=== PATIENT | female | born 1970 | race Caucasian/White ===

== ENCOUNTER 2021-03-27 07:53 | Outpatient (CLI) | payer BC, SELFPAY ==
[2021-03-27 09:00] LABS: Hematocrit 29.7 % (37.0-47.0); Hemoglobin 8.3 g/dL (12.0-15.0); Mean Corpuscular HGB Conc 27.9 g/dl (32-36); Mean Corpuscular Hemoglobin 19.9 pg (26-34); Mean Corpuscular Volume 71.2 fl (80-100); Platelet Count Result 432 k/mm3 (150-375); Red Blood Count 4.17 M/mm3 (4.2-5.4); Red Cell Distribution Width 20.7 % (11.5-14.5); White Blood Count 6.9 K/mm3 (4.5-10.0)
== END 2021-03-27 07:54 | disposition home or self-care (01) ==
PROVIDERS: PCP Family Medicine Adolescent Medicine; Visit Provider Student in an Organized Health Care Education/Training Program
DX: N93.9 Abnormal uterine and vaginal bleeding, unspecified (principal); Z01.818 Encounter for other preprocedural examination
CPT/HCPCS: 36415; 85027; 86850; 86900; 86901

== ENCOUNTER 2021-03-31 00:30 | Day surgery (SDC) | payer BC, SELFPAY ==
[2021-03-25 14:34] VITALS: BMI 23.4
[2021-03-31] VITALS (13 sets, daily range): BP systolic 111–148; BP diastolic 65–93; PULSE 65–88; RESP 12–16; TEMP 36.1–36.9; O2SAT 97–100
[2021-03-31] MEDS: ACETAMINOPHEN 500 MG TABLET 1000 MG PO (08:37)
[2021-03-31] MEDS: LACTATED RINGERS 1,000 ML 30 ML IV CONT ×2 (08:38→12:27)
[2021-03-31] MEDS: KETOROLAC 15 MG/ML VIAL (*BKC) IV PUSH (08:38)
[2021-03-31] MEDS: SCOPOLAMINE 1.5 MG PATCH TRANSDERM (08:44)
--- NOTE | 2021-03-31 09:14 | PM.IMHP ---
H&P: HPI History of Present Illness Date/Time: 03/31/21 09:14 50 yo F who presents for robotic assisted TLH/BS for AUB secondary to uterine fibroids. Pt has had 2 myomectomies in the past and still complained of bothersome abnormal uterine bleeding. Pt declined medical management and desires definitive management via hysterectomy. Chief Complaint: AUB uterine fibroids Review of Systems Cardiovascular: Cardiovascular: Denies chest pain, Denies leg edema, Denies palpitations, Denies dyspnea and Denies dyspnea on exertion Respiratory: Respiratory: Denies cough, Denies dyspnea and Denies dyspnea on exertion Gastrointestinal: Gastrointestinal: Denies abdominal pain, Denies constipation, Denies diarrhea, Denies nausea and Denies vomiting Genitourinary: Genitourinary: Denies hematuria, Denies urinary frequency, Denies dysuria, Denies pelvic pain, Denies urinary incontinence and Denies vaginal discharge Neurologic: Reports system reviewed and no additional complaints, except as documented Psychiatric: Psychiatric: Reports no additional psychiatric complaints Endocrine: Endocrine: Denies palpitations [facility] Family History Family History (Updated 04/28/16 @ 14:55 by DOCTOR UNKNOWN) Other Family history of malignant neoplasm Social History Social History Smoking packs per day: 0.5 Smoking cigarettes per day: 10.0 Years smoked: 5 Smoking pack-years: 2.50 Smoking status: Current every day smoker Tobacco type: cigarettes Alcohol intake: current Substance use: never Living arrangements: with family Gender identity (if verbalized by the patient): Female Sexual Orientation (if Verbalized by the Patient): Straight or Heterosexual Spiritual care concerns: No Meds Home Medications and Allergies Home Medications Medication Instructions Recorded Confirmed Type No Home Medications 03/25/21 03/25/21 History Allergies Allergy/AdvReac Type Severity Reaction Status Date / Time Penicillins AdvReac Unknown Unknown Verified 03/25/21 14:32 Exam Const: General: no acute distress Eyes: EOM: EOMs intact bilaterally Neck: Neck: supple Thyroid: thyroid normal Chest: Breast/axilla inspection: normal inspection of the breasts Breast/axilla palpation: normal palpation of the breasts, normal palpation of the axillae and no axillary lymphadenopathy Resp: Effort & Inspection: normal respiratory effort Auscultation: clear to auscultation bilaterally Cardio: Rate: regular rate Rhythm: regular rhythm GI: Inspection: non-distended GI Palp: Yes Soft to palpation, No Tenderness to palpation present (GI) and No Guarding due to palpation present (GI) Auscultation: normal bowel sounds : General: No bladder normal to palpation External Female Exam: normal external appearance Speculum Exam - Vagina: normal vaginal discharge and No vaginal bleeding Speculum Exam - Cervix: nontender Bimanual exam- vagina & uterus: No bladder normal to palpation and No Cervical tenderness present OB/external & speculum: No vaginal bleeding Skin: General skin exam: normal color and no rashes or lesions noted Neuro: Cognition (Neuro): normal cognition Speech: normal speech Extrem: General: normal to inspection and no edema Psych: Mental Status: mental status grossly normal Affect: normal affect Assessment and Plan Assessment and plan (1) Abnormal uterine bleeding (AUB): Code(s): N93.9 - Abnormal uterine and vaginal bleeding, unspecified Status: Acute Assessment and Plan: pt complains of AUB pelvic US shows uterine fibroid H/H 8.11/24, currently on iron supplementation, will continue plan for robotic assisted hysterectomy (2) Uterine fibroid: Code(s): D25.9 - Leiomyoma of uterus, unspecified Status: Acute Assessment and Plan: pelvic US shows 12x9.9x7.4 cm uterus with 7x6.5x7.5 cm uterine fibroid pt s/p 2 myomectomies without improvement of symptoms. pt desires def
--- NOTE | 2021-03-31 09:18 | WPDANESEPPF ---
Anes - Initial Pre Proc Eval Procedure: Operation Date: 03/31/21 10:00 Proposed Procedures p Robotic Assisted Total Vaginal Hysterectomy, with Bilateral Salpingectomy - Barrie Tomas MD Date/Time: 03/31/21 09:18 Surgeon: Barrie Tomas MD Pre Op Diagnosis: Enlarged uterus,fibroids,irregular uter. bleeding Patient Data Age: 50 Gender: F Height: 1.65 m Weight: 64 kg Allergies Allergy/AdvReac Type Severity Reaction Status Date / Time Penicillins AdvReac Unknown Unknown Verified 03/25/21 14:32 Home Medications Medication Instructions Recorded Confirmed Type No Home Medications 03/25/21 03/25/21 History Patient hx anesthesia problems: none Family hx anesthesia problems: none PMFSH Family History Family History (Updated 04/28/16 @ 14:55 by DOCTOR UNKNOWN) Other Family history of malignant neoplasm Social History Social History Smoking packs per day: 0.5 Smoking cigarettes per day: 10.0 Years smoked: 5 Smoking pack-years: 2.50 Smoking status: Current every day smoker Tobacco type: cigarettes Alcohol intake: current Substance use: never Living arrangements: with family Gender identity (if verbalized by the patient): Female Sexual Orientation (if Verbalized by the Patient): Straight or Heterosexual Spiritual care concerns: No Anes - Eval Final PreProcedure Day of Procedure 03/31/21 09:18 Patient weight: normal Heart: regular rate and rhythm Lungs: clear to auscultation Airway: Mallampati scale class II Neurological: alert and oriented Last oral intake: >/= 8 hours ASA classification: II Emergent: no Anesthetic plan: proceed Anesthesia type and monitoring: general ETT and standard monitoring Informed Consent: The patient's anesthetic plan and its attendant risks and benefits were discussed with the patient/family/POA. Questions were solicited and answers provided to the satisfaction of the patient/family/POA.
--- NOTE | 2021-03-31 09:19 | WPDHPUPDATE1 ---
History and Physical Update Update Date/Time: 03/31/21 09:19 History and Physical has been reviewed, including an updated exam of the patient. There are NO changes in the patient's condition. Risks, benefits, and alternatives have been discussed and questions answered. Patient agrees to proceed with procedure.
[2021-03-31] MEDS: ceFAZolin 2 GM/D5W 50 ML 2 GM/50 ML BAG IVPB (09:42)
[2021-03-31] MEDS: LIDO 1%/EPINEPHRINE 1:100,000 20 ML VIAL 18 ML INFILTRATE (10:30)
--- NOTE | 2021-03-31 12:18 | P.OP_ITS ---
Procedure Note - Detailed Date of Procedure 04/01/21 Pre-op Diagnosis Enlarged uterus,fibroids,irregular uter. bleeding Post-op Diagnosis same Procedure Performed robotic assisted total laparoscopic hysterectomy and bilateral salpingectomy Surgeon Barrie Tomas MD Anesthesia general Description of Procedure After the patient was appropriately consented she was taken to the operating room where she was transferred to the table in a dorsal supine position. General anesthesia was then induced with endotracheal intubation. The patient was transferred to a dorsal lithotomy position using adjustable yellow-fin stirrups. Her position was adjusted for appropriate support of her lower back and lower extremities. The patient was prepped and draped. A transurethral montanez catheter was place. The cervix was sequentially dilated and a TEVIN uterine manipulator placed in typical fashion about a 3.5 cm SADA ring. Gloves were changed. After confirmation of a functioning orogastric tube, lidocaine was injected at Chapa's point in the LUQ and a 5mm incision was made. A 5mm Optiview trocar was then inserted into the abdominal cavity under direct visualization and done so without complication. The abdomen was then insufflated with approximately 2-3L of CO2 establishing a pneumoperitoneum and the patient was placed in Trendelenburg position. Just above the umbilicus in the midline, a 8mm incision made after injection of lidocaine and a 8mm bladeless trocar advanced into the abdominal cavity under direct visualization without incident. We subsequently placed two robotic ports in a similar fashion, one in the left mid-quadrant and one in the right, 10cm lateral to the midline port. The robot was then docked. The left fallopian tube was identified to the level of the fimbrae. The fallopian tube was then transected along the inferior mesosalpinx. The left round ligament was divided and the posterior aspect of the broad ligament was then skeletonized down to the level of the internal cervical os, mobilizing the ureter laterally. The bladder flap was then created sharply. The ipsilateral uterine artery was skeletonized, bipolar cauterized and transected. A similar procedure was performed on the contralateral side, transecting the fallopian tube, completing the bladder flap, and skeletonizing, ligating, and dividing the uterine artery on this side. We ensured the vaginal pneumo- occluder balloon was insufflated and made a circumferential colpotomy using monopolar current. The uterine body was mostly made up of a large uterine fibroid. The specimen was bi-valved in the abdomen with a laparoscopic scalpel under direct visualization. The uterus, cervix, bilateral tubes were then delivered transvaginally. I then placed a single figure of eight suture of 0-vicryl in the left vaginal cuff apex. I then re-approximated the colpotomy with a running #1 PDO Quill suture in 2 layers. Following this dissection, the abdomen and pelvis were copiously irrigated and all surgical sites found to be hemostatic. Skin sites were reapproximated with 4-0 Vicryl in a subcuticular fashion. Steri-Strips were placed. The patient tolerated the procedure well. Sponge, needle and instrument counts were correct x 2 and the patient was taken to recovery in stable condition. Ancef was given for antimicrobial prophylaxis. The patient had SCD's on for VTE prophylaxis during the entire procedure. Estimated Blood Loss -50.0 Drains No Packing No Pathology yes (cervix, uterus, fallopian tubes) Complications No immediate complications Condition stable Disposition PACU
[2021-03-31] MEDS: fentaNYL CITRATE INJ (*CRX) 100 MCG/2 ML VIAL 25 MCG IV PUSH ×4 (12:39→13:01)
[2021-03-31] MEDS: ONDANSETRON INJ 4 MG/2 ML VIAL IV PUSH (12:48)
--- NOTE | 2021-03-31 13:19 | SUR.PHASEI ---
1300 - pt with swollen upper lip from oral airway. no open area noted. pt denies pain from lip
[2021-03-31] MEDS: HALOPERIDOL LACTATE 5 MG/ML VIAL 1 MG IV PUSH (13:45)
[2021-03-31] MEDS: IBUPROFEN 600 MG TABLET PO (16:53)
[2021-03-31] MEDS: HYDROcodone/acetaminophen (*CRX) 5-325 MG TABLET 1 TAB PO ×2 (20:17→23:40)
[2021-03-31] MEDS: KETOROLAC 30 MG/ML VIAL (*BKC) IV PUSH (23:34)
[2021-04-01] MEDS: HYDROcodone/acetaminophen (*CRX) 10-325 MG TABLET 1 TAB PO ×2 (03:34→07:12)
[2021-04-01 04:57] VITALS: BP 108/65; PULSE 71; RESP 15; TEMP 36.6; O2SAT 97
[2021-04-01] MEDS: IBUPROFEN 600 MG TABLET PO (07:11)
--- NOTE | 2021-04-01 07:12 | PM.DS ---
DS: Admitting Diagnosis Admitting Diagnosis AUB uterine fibroid DS: Summary Hospital Course Hospital Course: Raquel Osorio was admitted after robotic assisted total laparoscopic hysterectomy and bilateral salpingectomy for abnormal uterine bleeding secondary to uterine fibroid. The above procedure was performed with no complications. She is doing well post op. She states her pain is well controlled with PO medications. She reports minimal bleeding. She is ambulating up to the chair. Her montanez catheter was removed. She is tolerating PO without N/V. She reports passing flatus. Status at Discharge Overall status at discharge: patient is progressing back to baseline Time Spent with Patient Time attestation: Total time spent providing and/or coordinating discharge services: Time spent: Less than 30 minutes Exam Const: General: comfortable and no acute distress Limitations: no limitations Resp: Effort & Inspection: normal respiratory effort Auscultation: clear to auscultation bilaterally Cardio: Rate: regular rate Rhythm: regular rhythm GI: Inspection: non-distended GI Palp: Yes Soft to palpation, Yes Tenderness to palpation present (GI) (milder tenderness to deep palpation) and No Guarding due to palpation present (GI) Auscultation: normal bowel sounds Other: incisions C/D/I covered with dermabond Urinary Catheter: Urinary Catheter: urine clear Skin: General skin exam: normal color Extrem: General: normal to inspection Psych: Mental Status: mental status grossly normal Affect: normal affect DS: Data Data Completed and Pending Pending studies at discharge: Pending at discharge 03/31/21 11:04 Surgical [PTH] Routine Discharge Plan Discharge Patient Disposition: Home, Self-Care Discharge Instructions: Remove the Scopolamine patch that was placed behind your ear in 72 hours or less. Wash your hands after touching. Stand Alone Forms: General Discharge Instructions Follow-up/Referrals: Barrie Tomas MD [Physician] - 2 Weeks Discharge Medications: New ibuprofen 600 mg Tablet 600 mg PO Q6H PRN (Reason: Cramping) Qty: 30 RF: 0 oxycodone-acetaminophen 5-325 mg tablet 1 tablet PO Q6H PRN (Reason: pain) Qty: 28 RF: 0 sennosides-docusate sodium [Senna with Docusate Sodium] 8.6-50 mg tablet 1 tab-cap PO HS Qty: 30 RF: 0
[2021-04-01 07:15] VITALS: PULSE 71; RESP 15; O2SAT 97
== END 2021-04-01 10:15 | disposition home or self-care (01) ==
LOC: ANHSURGERY 13:46 → ANHOB2 17:14
PROVIDERS: PCP Family Medicine Adolescent Medicine; Visit Provider Student in an Organized Health Care Education/Training Program
PROC: (CPT 58573; principal; 2021-03-31 10:00)
DX: N93.9 Abnormal uterine and vaginal bleeding, unspecified (principal); N80.0 Endometriosis of uterus; D64.9 Anemia, unspecified; F17.210 Nicotine dependence, cigarettes, uncomplicated
CPT/HCPCS: 58573; 88307; 99199; A9270; J0330; J0690; J1100; J1630; J1885; J2250; J2405; J2704; J3010; J7030; J7120

== ENCOUNTER 2021-08-25 01:08 | Day surgery (SDC) | payer BC, SELFPAY ==
[2021-08-11 14:18] VITALS: BMI 25.0
[2021-08-25 07:44] VITALS: BP 121/73; PULSE 80; RESP 16; TEMP 36.1; O2SAT 100; BMI 25.2
[2021-08-25] MEDS: LACTATED RINGERS 1,000 ML 150 ML IV CONT (07:53)
--- NOTE | 2021-08-25 07:55 | WPDGICN ---
Assessment and Plan Assessment and plan (1) Encounter for screening colonoscopy: Code(s): Z12.11 - Encounter for screening for malignant neoplasm of colon Status: Acute Assessment and Plan: Patient presents for screening colonoscopy. Appears to be at average risk for colon polyps. GI Consult Note Consult date/time: 08/25/21 07:55 HPI: Raquel Osorio is a 50 year old female presents for screening colonoscopy. Patient reports that her current weight appetite and bowel movements are normal. She denies abdominal pain. She has had no bleeding. Family history is noncontributory. Review of Systems Review of Systems: All systems reviewed & are unremarkable except as noted in HPI and below PMFSH Family History Family History (Updated 04/28/16 @ 14:55 by DOCTOR UNKNOWN) Other Family history of malignant neoplasm Social History Social History Smoking packs per day: 0.5 Smoking cigarettes per day: 10.0 Years smoked: 5 Smoking pack-years: 2.50 Smoking status: Current every day smoker Tobacco type: cigarettes Alcohol intake: current Drinks per week: 5 Substance use: never Substance use type: does not use Living arrangements: with family Gender identity (if verbalized by the patient): Female Sexual Orientation (if Verbalized by the Patient): Straight or Heterosexual Spiritual care concerns: No Meds Home Medications and Allergies Home Medications Medication Instructions Recorded Confirmed Type multivit with min-folic acid 1 tablet PO DAILY 08/11/21 08/11/21 History [Adult One Daily Multivitamin] Allergies Allergy/AdvReac Type Severity Reaction Status Date / Time Penicillins AdvReac Unknown Unknown Verified 08/11/21 14:15 Vital Signs Vital Signs - 24 hr 08/25/21 07:44 Temperature 97 F L Pulse Rate 80 Respiratory Rate 16 Blood Pressure 121/73 Pulse Oximetry 100 Exam Narrative: Physical exam reveals patient be alert. Vital signs stable. HEENT exam is unremarkable. Patient is anicteric. Lungs are clear to auscultation and percussion. Heart is without murmur or extra sounds. Abdominal exam bowel sounds present soft nontender with no organomegaly. Digital external rectal exam is normal.
--- NOTE | 2021-08-25 08:39 | WPDANESEPPF ---
Anes - Initial Pre Proc Eval Procedure: Operation Date: 08/25/21 09:00 Proposed Procedures p Screening Colonoscopy - Chip Villareal MD Date/Time: 08/25/21 08:39 Surgeon: Chip Villareal MD Pre Op Diagnosis: neoplasm screening Patient Data Age: 50 Gender: F Height: 1.65 m Weight: 68.8 kg Last Vital Signs Temp 36.1 C L 08/25/21 07:44 Pulse 80 08/25/21 07:44 Resp 16 08/25/21 07:44 BP 121/73 08/25/21 07:44 Pulse Ox 100 08/25/21 07:44 Allergies Allergy/AdvReac Type Severity Reaction Status Date / Time Penicillins AdvReac Unknown Unknown Verified 08/11/21 14:15 Home Medications Medication Instructions Recorded Confirmed Type multivit with min-folic acid 1 tablet PO DAILY 08/11/21 08/11/21 History [Adult One Daily Multivitamin] Patient hx anesthesia problems: none Family hx anesthesia problems: none Results Review: All pre-operative results and documents have been reviewed as part of the pre-operative evaluation. [facility] Family History Family History Other Family history of malignant neoplasm Social History Social History Smoking packs per day: 0.5 Smoking cigarettes per day: 10.0 Years smoked: 5 Smoking pack-years: 2.50 Smoking status: Current every day smoker Tobacco type: cigarettes Alcohol intake: current Drinks per week: 5 Substance use: never Substance use type: does not use Living arrangements: with family Gender identity (if verbalized by the patient): Female Sexual Orientation (if Verbalized by the Patient): Straight or Heterosexual Spiritual care concerns: No Anes - Eval Final PreProcedure Day of Procedure 08/25/21 08:40 Patient weight: normal Heart: regular rate and rhythm Lungs: clear to auscultation Airway: Mallampati scale class II Neurological: alert and oriented Last oral intake: >/= 8 hours ASA classification: II Emergent: no Anesthetic plan: proceed Anesthesia type and monitoring: general GIVS and standard monitoring Results Review: All pre-operative results and documents have been reviewed as part of the pre-operative evaluation. Informed Consent: The patient's anesthetic plan and its attendant risks and benefits were discussed with the patient/family/POA. Questions were solicited and answers provided to the satisfaction of the patient/family/POA.
[2021-08-25] MEDS: SIMETHICONE ORAL SUSPENSION 20 MG/0.3 ML 30 ML BOTTLE 0.6 ML IRRIGATION (09:11)
[2021-08-25 09:20] VITALS: BP 94/60; PULSE 73; RESP 18; O2SAT 100
[2021-08-25 09:30] VITALS: BP 105/64; PULSE 79; RESP 16; O2SAT 100
[2021-08-25 09:40] VITALS: BP 123/78; PULSE 74; RESP 18; O2SAT 100
== END 2021-08-25 09:55 | disposition home or self-care (01) ==
PROVIDERS: PCP Family Medicine Adolescent Medicine; Visit Provider Internal Medicine Gastroenterology
PROC: 0DJD8ZZ Inspection of Lower Intestinal Tract, Via Natural or Artificial Opening Endoscopic (ICD-10-PCS; CPT 45378; principal; 2021-08-25 09:00)
DX: Z12.11 Encounter for screening for malignant neoplasm of colon (principal); K64.8 Other hemorrhoids; K57.30 Diverticulosis of large intestine without perforation or abscess without bleeding; F17.210 Nicotine dependence, cigarettes, uncomplicated
CPT/HCPCS: 45378; J2704; J7120

== ENCOUNTER → 2022-07-16 15:28 | Outpatient (CLI) | payer BC, SELFPAY ==
--- NOTE | ~2022-07-16 | MM_ITS ---
EXAMINATION: MM screening [place] BI w adriana HISTORY: Screening TECHNIQUE: Craniocaudal and mediolateral oblique 3-D tomosynthesis images were obtained and synthetic 2-D images were generated. CAD analysis was submitted and interpreted. COMPARISON: No prior mammogram is available for comparison at this institution. BREAST PARENCHYMAL COMPOSITION: Breast composed of scattered areas of fibroglandular density FINDINGS: There are focal asymmetries in the upper inner quadrant of the right breast. There is no ev idence for malignancy in the left breast. IMPRESSION: 1. Focal right breast asymmetries, upper inner quadrant, middle third. 2. Additional mammographic views and possible breast ultrasound are recommended. BI-RADS Category 0: Incomplete: Needs additional imaging evaluation. Reviewed, dictated and finalized at location A. CING ANALYST IMPRESSION: 1. Focal right breast asymmetries, upper inner quadrant, middle third. 2. Additional mammographic views and possible breast ultrasound are recommended . BI-RADS Category 0: Incomplete: Needs additional imaging evaluation.
== END ==
PROVIDERS: PCP Family Medicine Adolescent Medicine; Visit Provider Student in an Organized Health Care Education/Training Program
DX: Z12.31 Encounter for screening mammogram for malignant neoplasm of breast (principal); R92.8 Other abnormal and inconclusive findings on diagnostic imaging of breast
CPT/HCPCS: 77063; 77067

== ENCOUNTER → 2022-09-07 09:59 | Outpatient (CLI) | payer BC, SELFPAY ==
--- NOTE | ~2022-09-07 | MMUS_ITS ---
EXAMINATION: MM diagnostic [place] RT w adriana, US breast RT complete HISTORY: Focal asymmetry in upper inner quadrant of right breast on 07/16/2022 screening mammogram TECHNIQUE: Additional 3-D tomosynthesis images of the right breast were performed and synthetic 2-D i mages were generated. CAD analysis was submitted and interpreted. High resolution complete right leigh st ultrasound examination including all 4 quadrants and subareolar area was performed. COMPARISON: 07/16/2022 bilateral screening mammogram FINDINGS: MAMMOGRAPHIC FINDINGS: There is a circumscribed rounded 3.5 mm opacity in the inner aspect of the upper inner quadrant of th e right breast. Approximately 3.4 mm circumscribed opacity is suggested in the outer mid right breast. Each of these has circumscribed margins and relative density, suggesting most likely benign process. ULTRASOUND: 10:00 8 cm from nipple: Parallel circumscribed hypoechoic approximately 2 x 3 x 4.6 mm hypoechoic les ion without internal vascularity or posterior shadowing No suspicious mass or shadowing is detected otherwise. IMPRESSION: 1. Probable benign findings 2. Six-month diagnostic right mammogram and right breast ultrasound follow-up are recommended BI-RADS category 3, probably benign findings. Reviewed, dictated and finalized at location A. REDUCTION ROLLER IMPRESSION: 1. Probable benign findings 2. Six-month diagnostic right mammogram and right breast ultrasound follow-up a re recommended BI-RADS category 3, probably benign findings.
== END ==
PROVIDERS: PCP Family Medicine Adolescent Medicine; Visit Provider Student in an Organized Health Care Education/Training Program
DX: R92.8 Other abnormal and inconclusive findings on diagnostic imaging of breast (principal)
CPT/HCPCS: 76641; 77061; 77065; G0279

== ENCOUNTER 2023-04-04 12:44 | Outpatient (CLI) | payer OTHER, SELFPAY ==
--- NOTE | ~2023-04-04 | MMUS_ITS ---
EXAMINATION: MM diagnostic [place] RT w adriana, US breast RT limited HISTORY: Six-month follow-up for probably benign right breast mass TECHNIQUE: Craniocaudal, mediolateral, and mediolateral oblique 3-D tomosynthesis images of the right breast were performed and synthetic 2-D images were generated. CAD analysis was submitted and interp reted. High resolution limited right breast ultrasound was performed. COMPARISON: 09/07/2022, 07/16/2022, 04/21/2020 BREAST PARENCHYMAL COMPOSITION: There are scattered areas of fibroglandular density. FINDINGS: MAMMOGRAPHIC FINDINGS: There is stable 4 mm oval, obscured, low density mass in the middle third of the breast at the 12:00 location 5 cm from the nipple. ULTRASOUND: A stable 4 mm x 2 mm oval, circumscribed, parallel, hypoechoic mass with no posterior features or int ernal vascularity is again seen at the 10:00 location, 8 cm from the nipple. There has been no suspic ious interval change. No additional mass is identified. IMPRESSION: 1. Stable, probably benign right breast mass. 2. Recommend 6 month follow-up diagnostic mammogram and ultrasound. BI-RADS category 3, probably benign findings. Reviewed, dictated and finalized at location A. IMPRESSION: 1. Stable, probably benign right breast mass. 2. Recommend 6 month follow-up diagnostic mammogram and ultrasound. BI-RADS category 3, probably benign findings.
== END 2023-04-04 12:45 | disposition home or self-care (01) ==
LOC: ANHIMG 12:47
PROVIDERS: PCP Family Medicine Adolescent Medicine; Visit Provider Student in an Organized Health Care Education/Training Program
DX: R92.8 Other abnormal and inconclusive findings on diagnostic imaging of breast (principal)
CPT/HCPCS: 76642; 77061; 77065; G0279

== ENCOUNTER 2023-12-07 11:04 | Outpatient (CLI) | payer OTHER, SELFPAY ==
[2023-12-07 12:02] LABS: Hematocrit 42.4 % (37.0-47.0); Hemoglobin 13.6 g/dL (12.0-15.0); Mean Corpuscular HGB Conc 32.1 g/dl (32-36); Mean Corpuscular Hemoglobin 29.8 pg (26-34); Mean Platelet Volume 10.4 fl (7.4-10.4); Platelet Count Result 278 k/mm3 (150-375); Red Blood Count 4.56 M/mm3 (4.2-5.4); Red Cell Distribution Width 14.6 % (11.5-14.5); White Blood Count 6.6 K/mm3 (4.5-10.0)
[2023-12-07 12:15] LABS: Alanine Aminotransferase 32 U/L (6-35); Albumin Level 4.8 g/dL (3.5-5.1); Alkaline Phosphatase 69 U/L (38-126); Anion Gap 7 mmol/L (4-12); Aspartate Amino Transferase 30 U/L (14-36); Bilirubin,Total 0.7 mg/dL (0.2-1.3); Blood Urea Nitrogen 15 mg/dL (7-17); Calcium 9.8 mg/dL (8.4-10.2); Carbon Dioxide 25 mmol/L (22-30); Chloride 104 mmol/L (98-107); Cholesterol 250 mg/dL (0-200); Estimated Glomerular Filt Rate > 60; Glucose 123 mg/dL (65-110); HDL Direct 50 mg/dL; Sodium 136 mmol/L (137-145); Triglycerides 185 mg/dL (<150)
[2023-12-07 12:26] LABS: LDL Cholesterol Direct 161 mg/dL
== END 2023-12-07 11:05 | disposition home or self-care (01) ==
LOC: ANHLAB 11:08
PROVIDERS: PCP Family Medicine Adolescent Medicine; Visit Provider Family Medicine Adolescent Medicine
DX: F41.9 Anxiety disorder, unspecified (principal); D64.9 Anemia, unspecified; Z13.220 Encounter for screening for lipoid disorders
CPT/HCPCS: 36415; 80053; 80061; 85027

== ENCOUNTER 2024-03-21 09:52 | Outpatient (CLI) | payer OTHER, SELFPAY ==
--- NOTE | ~2024-03-21 | MMUS_ITS ---
EXAMINATION: US breast RT limited, MM diagnostic [place]ka BI w adriana HISTORY: Follow-up right breast mass TECHNIQUE: Additional 3-D tomosynthesis images of the breasts were performed and synthetic 2-D images were generated. CAD analysis was submitted and interpreted. High resolution Limited right breast ult rasound was performed. COMPARISON: Comparison to multiple prior studies sequentially, with oldest reviewed study dated 06/29. BREAST PARENCHYMAL COMPOSITION: Not dense: There are scattered areas of fibroglandular density. FINDINGS: MAMMOGRAPHIC FINDINGS: The breasts are stable. No suspicious masses, calcifications or architectural distortion are identifi ed in either breast to suggest malignancy. ULTRASOUND: Limited right breast ultrasound: At 10:00, 8 cm from the nipple there is an oval hypoechoic 5 mm mass , likely complicated cysts without internal vascularity or posterior features. This is unchanged dati ng back to 09/07/2022, presumably benign. IMPRESSION: 1. Stable 5 mm right breast mass at 10:00, 8 cm from the nipple, likely benign. 2. Given one year of interval stability, recommend 12 month followup bilateral mammogram and Limited right breast ultrasound. BI-RADS category 3, probably benign findings. Reviewed, dictated and finalized at location B. IMPRESSION: 1. Stable 5 mm right breast mass at 10:00, 8 cm from the nipple, likely benign. 2. Given one year of interval stability, recommend 12 month followup bilateral mammogram and Limited right breast ultrasound. BI-RADS category 3, probably benign findings.
== END 2024-03-21 09:53 ==
LOC: MICIMG 09:53
PROVIDERS: PCP Family Medicine Adolescent Medicine; Visit Provider Family Medicine Adolescent Medicine
DX: N63.10 Unspecified lump in the right breast, unspecified quadrant (principal); R92.8 Other abnormal and inconclusive findings on diagnostic imaging of breast
CPT/HCPCS: 76642; 77062; 77066; G0279